=== PATIENT | female | born 1930 | race Caucasian/White ===

== ENCOUNTER → 2017-07-17 | Outpatient (CLI) | payer OTHER ==
[~2017-07-17] MED LIST: AREDS EYE VITAMIN OP; CALCIUM PO; GABAPENTIN100 MG PO; LIPITOR10 MG PO; MULTI-VITAMIN1 EACH PO; PANTOPRAZOLE SO40 MG PO; SOTALOL80 MG PO; SYNTHROID50 MCG PO; XARELTO10 MG PO
--- NOTE | 2017-07-17 15:42 | Diagnostic Imaging Report ---
PROCEDURE: X-RAY CHEST, TWO VIEWS COMPARISON: Patients [facility], DX, CHEST 2 VIEWS, 04/29/2008, 10:05. INDICATIONS: PNEUMONIA FINDINGS: LUNGS: Well-inflated without infiltrate or soft tissue mass. Calcified granuloma in the right lower lobe is stable. PLEURA: No effusions or pneumothorax. HEART \T\ MEDIASTINUM: The heart is within normal size-limits. No hilar lymphadenopathy. BONES \T\ SOFT TISSUES: No focal osseous lesions. CONCLUSION: No acute cardiopulmonary process. Dictated by: Tamie Fitzgerald M.D. on 07/17/2017 at 15:43 Electronically approved by: Tamie Fitzgerald M.D. on 07/17/2017 at 15:43
== END ==
LOC: LAB 10:41
PROVIDERS: ATTEND Internal Medicine Infectious Disease
DX: R53.83 Other fatigue (principal); J18.9 Pneumonia, unspecified organism
CPT/HCPCS: 36415; 71046; 85651